=== PATIENT | male | born 1945 | race Caucasian/White ===

== ENCOUNTER 2022-12-08 08:07 | Outpatient (CLI) | payer MEDICARE ==
[2022-12-08 09:40] LABS: Hemoglobin 11.6 g/dL (13.5-17.5); Mean Corpuscular HGB CONC 31.3 g/dL (32.0-36.0); Mean Corpuscular Hemoglobin 28.3 pg (27.0-33.0); Mean Corpuscular Volume 90.5 fl (81.2-95.1); Mean Platelet Volume 9.3 fl (7.4-10.4); Platelet Count 252 10x3/uL (150-450); RBC Distribution Width 18.2 % (11.5-14.5); White Blood Cell (WBC) Count 6.2 10x3/uL (3.5-10.5)
[2022-12-08 10:12] LABS: Anion Gap 13 mmol/L (10-20); BUN (Urea Nitrogen) 15 mg/dL (8.4-25.7); Calc. Creatinine Clearance 0 mL/min (70-130); Calcium 9.8 mg/dL (7.8-10.44); Carbon Dioxide 30 mmol/L (23-31); Chloride 104 mmol/L (98-107); Estimated GFR 78; Glucose 107 mg/dL (83-110); Potassium 4.6 mmol/L (3.5-5.1); Sodium 142 mmol/L (136-145)
== END 2022-12-08 08:08 | disposition home or self-care (01) ==
LOC: CSHLAB 08:07
PROVIDERS: ATTEND Otolaryngology Otolaryngic Allergy
DX: Z01.818 Encounter for other preprocedural examination (principal); D38.0 Neoplasm of uncertain behavior of larynx; R49.0 Dysphonia; Z71.6 Tobacco abuse counseling
CPT/HCPCS: 80048; 85027; 93005; 93010